=== PATIENT | male | born 2000 | race Two or more races ===

== ENCOUNTER → 2024-01-23 | Outpatient (CLI) | payer OTHER, SELFPAY ==
[2024-01-23 10:06] LABS: Bilirubin,Direct 0.5 mg/dL (0.0-0.3); Bilirubin,Total 1.6 mg/dL (0.3-1.2); eGFR > 60 See Note
== END | disposition home or self-care (01) ==
LOC: COPL 09:02
PROVIDERS: PCP Internal Medicine; Referring Provider Dermatology; Visit Provider Dermatology
DX: L65.9 Nonscarring hair loss, unspecified (principal)
CPT/HCPCS: 36415; 82247; 82248; 82565